=== PATIENT | male | born 1935 | race African-American/Black ===

== ENCOUNTER → 2018-07-22 | Emergency (ER) | payer OTHER ==
[~2018-07-22] MED LIST: ACETAMINOPHEN 325 MG TABLET (FP) PO ONE; ACETAMINOPHEN 500 MG TABLET (FP) ONE; DIPHTH,PERTUSS(ACELL),TET 0.5 ML DISP.SYRIN IM ONE
--- NOTE | 2018-07-22 10:24 | PDOC ---
History of Present Illness - General Chief Complaint: Laceration Stated Complaint: LACERATION TO AREA ABOVE LEFT EYEBROW Time Seen by Provider: 07/22/18 10:18 History Source: Patient, EMS Exam Limitations: No Limitations - History of Present Illness Initial Comments: 07/22/18 10:54 [id number] 83 YOM with h/o metastatic brain cancer from lung cancer with residual gait instability presenting with mechanical fall this morning, sustaining left eyebrow laceration. No LOC. no other injuries. No headache, dizziness or other complaints. No prodromal sx. he is currently awaiting radiation therapy for his metastatic brain cancer, with known ring enhancing lesions. PMD: Dr Cordova, Oncologist: Dr Hutchison, [facility]. Constitutional: no fevers or chills. HEENT: no headache or dizziness. No visual/hearing disturbances. CVS: no cp or syncope. Resp: no sob. Abdomen: no abdominal pain, nausea or vomiting. MUSCULOSKELETAL: No joint pain and swelling. No neck or back pain. SKIN: no redness or skin changes, no discharge, no rash. +eyebrow laceration. Hematologic: no easy bruising/bleeding. NEUROLOGIC: No headache, dizziness, LOC or altered mental status. No weakness, numbness or tingling. All other systems reviewed and negative, or as documented in HPI. General: GCS 15 NAD, well appearing. HEENT: NCAT, PERRL, EOMI. Airway intact. Normal forehead wrinkling. +left upper eyebrow 1cm linear SQ laceration. Nonbleeding. Mild supraorbital edema 2/2 wound , nontender. Neck: neck supple, no midline C spine tenderness, ROM intact. Resp: Lungs clear, no crepitus Chest: no clavicle or chest wall tenderness CVS: RRR, 2+ pulses throughout. Abdomen: Abdomen soft, NTND, nonperitoneal. Back: Back nontender, no midline spinal tenderness, FROM, no stepoffs. MSK: Pelvis stable, FROM in all extremities. No focal msk tenderness in all extremities. Neuro: Alert, no focal neuro deficits. Skin: intact, normal color and well perfused. 07/22/18 11:53 07/22/18 12:22 Past History - Past Medical History Allergies/Adverse Reactions: Allergies Allergy/AdvReac Type Severity Reaction Status Date / Time No Known Allergies Allergy Verified 07/22/18 10:16 Home Medications: Ambulatory Orders Amlodipine Besylate [Norvasc -] 5 mg PO DAILY 11/21/11 Carvedilol [Coreg] 12.5 mg PO BID 11/21/11 Losartan Potassium [Cozaar] 100 mg PO DAILY 11/21/11 Anemia: No Asthma: No Cancer: No Cardiac Disorders: No CVA: No COPD: No CHF: No Dementia: No Diabetes: No GI Disorders: No Disorders: No HTN: Yes Hypercholesterolemia: No Liver Disease: No Seizures: No Thyroid Disease: No - Surgical History Abdominal Surgery: No Appendectomy: No Cardiac Surgery: No Cholecystectomy: No Lung Surgery: No Neurologic Surgery: No Orthopedic Surgery: No - Suicide/Smoking/Psychosocial Hx Smoking History: Former smoker Have you smoked in the past 12 months: Yes Number of Cigarettes Smoked Daily: 5 'Breaking Loose' booklet given: 11/07/13 Hx Alcohol Use: Yes (SOCIAL) Drug/Substance Use Hx: No Substance Use Type: None Hx Substance Use Treatment: No Procedures - Laceration/Wound Repair Left Upper Face Wound Length: to 2.5 cm Wound Explored: clean Wound's Depth, Shape: superficial Irrigated w/ Saline: Yes Betadine Prep: Yes Anesthesia: 1% Lidocaine Amount of Anesthetic (ccs): 2 Wound Debrided: minimal Wound Repaired With: Sutures Suture Size/Type: 5:0 Number of Sutures: 3 Layer Closure: No Sterile Dressing Applied: Yes Medical Decision Making - Medical Decision Making 07/22/18 11:01 See HPI for details. No prodromal sx to suggest syncope; no neuro deficits, well appearing and pain controlled, no headache or dizziness. Vital signs reviewed, wnl. ED course: tdap updated here, rt eyebrow wound approximated with 5-0 prolene sutures x3, remove in [address] head with tiny focus increased attenuation in superior anterior aspect of right frontal convexity, artifact vs microcalcification vs tiny hemorrhage, unclear/equivocal. HD stable, normotensive. no pain now. - call to Dr Cordova, PMD for further information; confirmed, known history of metastatic brain cancer from lung malignancy, last imaging on 06/26/18 MRI brain /CTA with posterior frontal right parasagittal ring enhancing lesions. no nsg evaluation as of yet, awaiting workup and oncologic care. no [employer] catering convention services manager today, called to Dr Shah/edgardo Hobbs. attempted to transfer to [facility], no [employer] catering convention services manager there as well. transfer to [facility], where neurosurgery is available and provide input, repeat imaging/advanced imaging such as MRI to elucidate, given his history. accepted by Dr Friend, [facility] catering convention services manager at [facility], will transfer for evaluation of ?bleed. gave report as well to ED attending as well, discussed case. prepared report and CT scan with paperwork for transfer. pt and family members (daughter Jennifer, updated as well, agreeable). consent forms signed. Dispo: transfer to [facility] 07/22/18 12:24 07/22/18 12:43 07/22/18 12:44 *DC/Admit/Observation/Transfer Diagnosis at time of Disposition: Laceration of brow without complication Qualifiers: Encounter type: initial encounter Qualified Code(s): S01.81XA - Laceration without foreign body of other part of head, initial encounter Head injury Qualifiers: Encounter type: initial encounter Qualified Code(s): S09.90XA - Unspecified injury of head, initial encounter - Discharge Dispostion Disposition: TRANSFER ACUTE CARE/OTHER HOSP Condition at time of disposition: Improved - Referrals - Patient Instructions Printed Discharge Instructions: DI for Laceration Repair - Post Discharge Activity - Transfer to Acute Care Facility Receiving Facility: [facility] Accepting Physician:: Dr Friend Transfer comment: 07/22/18 12:35 Neurosurgery
[2018-07-22 10:25] VITALS: TEMP 97.6; BMI 26.7
[2018-07-22 12:51] VITALS: BP 154/73; PULSE 65
== END | disposition short-term general hospital (02) ==
LOC: FER 10:14
PROC: 0HQ1XZZ Repair Face Skin, External Approach (ICD-10-PCS; principal; 2018-07-22)
PROC: 3E0234Z Introduction of Serum, Toxoid and Vaccine into Muscle, Percutaneous Approach (ICD-10-PCS; 2018-07-22)
DX: S01.112A Laceration without foreign body of left eyelid and periocular area, initial encounter (principal); S09.90XA Unspecified injury of head, initial encounter; W18.30XA Fall on same level, unspecified, initial encounter; Z91.81 History of falling; Y93.9 Activity, unspecified; Y92.9 Unspecified place or not applicable; I10 Essential (primary) hypertension; Z85.118 Personal history of other malignant neoplasm of bronchus and lung; Z85.841 Personal history of malignant neoplasm of brain; Z87.891 Personal history of nicotine dependence
CPT/HCPCS: 70450-TC; 90715; 99283-25